=== PATIENT | female | born 1975 | race Caucasian/White ===

== ENCOUNTER 2017-02-17 16:02 | Inpatient (IN) | payer OTHER ==
[~2017-02-17] VITALS: Ht 154.9 cm; Wt 59.0 kg
[~2017-02-17 16:02] MED LIST: BACTRIM1 TAB PO; OSCD PO
[2017-02-17 19:38] LABS: BASOPHIL % 0.1 % (0-2); PLATELET COUNT 280 x10^3mcL (130-400); RED CELL DISTRIBUTION WIDTH 13.1 % (11.5-14.5)
[2017-02-17 19:45] LABS: CALCIUM 8.1 mg/dL (8.5-10.1); CARBON DIOXIDE 24.7 mmol/L (21-32); CHLORIDE SERUM 99 mmol/L (98-107); CREATININE SERUM 0.8 mg/dL (0.6-1.0); GFR1 > 60 mL/min; GLUCOSE SERUM 92 mg/dL (74-106); POTASSIUM SERUM 3.3 mmol/L (3.5-5.1); SODIUM SERUM 135 mmol/L (136-145)
[2017-02-17 19:57] LABS: ALBUMIN 3.3 g/dL (3.4-5.0); ALKALINE PHOSPHATASE 82 U/L (46-116); ALT/SGPT 27 U/L (14-59); AST/SGOT 20 U/L (15-37); BILIRUBIN TOTAL 0.71 mg/dL (0.20-1.00); T4(THYROXINE) 8.3 ug/dL (4.7-13.3); TOTAL PROTEIN, SERUM 7.3 g/dL (6.4-8.2)
[2017-02-17 21:20] LABS: UA SPECIFIC GRAVITY <=1.005 (1.005-1.035); microscopic required? YES; urine erythrocyte TRACE (NEGATIVE)
[2017-02-17] MEDS ORDERED: MULTIVITAMIN1 SGL PO (22:00)
[2017-02-18] VITALS (8 sets, daily range): BP systolic 80–94; BP diastolic 46–57
[2017-02-18 00:30] LABS: MAGNESIUM 1.8 mg/dL (1.8-2.4); PHOSPHOROUS 2.2 mg/dL (2.5-4.9)
[2017-02-18 00:36] LABS: CHOLESTEROL/HDL RATIO 2.2; T3 TOTAL 0.83 ng/mL
[2017-02-18 00:40] LABS: FREE T4 1.36 ng/dL (0.76-1.46); FREE THYROXINE INDEX 2.9 ug/dL (1.4-4.5); T4(THYROXINE) 8.1 ug/dL (4.7-13.3)
[2017-02-18 05:35] LABS: PLATELET COUNT 228 x10^3mcL (130-400); RED CELL DISTRIBUTION WIDTH 13.4 % (11.5-14.5)
[2017-02-18 05:43] LABS: BASOPHIL % 0 % (0-2)
[2017-02-18 06:52] LABS: CALCIUM 7.4 mg/dL (8.5-10.1); CARBON DIOXIDE 20.3 mmol/L (21-32); CHLORIDE SERUM 109 mmol/L (98-107); CREATININE SERUM 0.6 mg/dL (0.6-1.0); GFR1 > 60 mL/min; GLUCOSE SERUM 174 mg/dL (74-106); PHOSPHOROUS 2.5 mg/dL (2.5-4.9); POTASSIUM SERUM 4.5 mmol/L (3.5-5.1); SODIUM SERUM 140 mmol/L (136-145)
[2017-02-18 17:04] LABS: AMPHETAMINE QUAL UR NONE DETECTED (NEG <=1000)
[2017-02-19 00:21] VITALS: BP 95/52
[2017-02-19 05:13] VITALS: BP 97/52
[2017-02-19 06:25] LABS: PLATELET COUNT 245 x10^3mcL (130-400); RED CELL DISTRIBUTION WIDTH 13.6 % (11.5-14.5)
[2017-02-19 06:44] LABS: CALCIUM 7.9 mg/dL (8.5-10.1); CARBON DIOXIDE 21.9 mmol/L (21-32); CHLORIDE SERUM 110 mmol/L (98-107); CREATININE SERUM 0.6 mg/dL (0.6-1.0); GFR1 > 60 mL/min; GLUCOSE SERUM 150 mg/dL (74-106); MAGNESIUM 1.9 mg/dL (1.8-2.4); PHOSPHOROUS 2.7 mg/dL (2.5-4.9); POTASSIUM SERUM 4.1 mmol/L (3.5-5.1); SODIUM SERUM 141 mmol/L (136-145)
[2017-02-19 07:30] LABS: BAND NEUTROPHIL 2 % (0-10); BASOPHIL 0 % (0-2); MONOCYTE 1 % (0-7); SEGMENTED NEUTROPHILS 96 % (37-75)
[2017-02-19 07:31] LABS: rbc morphology (normal/abnorm) NORMAL (NORMAL)
[2017-02-19 07:32] LABS: PLATELET MORPHOLOGY PLATELETS NORMAL
[2017-02-19 09:12] VITALS: BP 91/56
[2017-02-19 10:03] VITALS: BP 91/56
[2017-02-19] MEDS ORDERED: LAC PO (10:16)
[2017-02-19] MEDS ORDERED: NITROFURANTOIN100 M3 PO (10:16)
== END 2017-02-19 11:06 | disposition home or self-care (01) | DRG 915 ==
LOC: ED 16:02 → IC 22:06 → DU 22:06 → IC 02-18 01:13 → DU 02-18 15:04
PROVIDERS: Emergency Medicine; ADMIT Family Medicine
DX: T88.6XXA Anaphylactic reaction due to adverse effect of correct drug or medicament properly administered, initial encounter (principal); E43 Unspecified severe protein-calorie malnutrition; N39.0 Urinary tract infection, site not specified; E87.1 Hypo-osmolality and hyponatremia; I95.2 Hypotension due to drugs; E83.51 Hypocalcemia; E87.6 Hypokalemia; D72.829 Elevated white blood cell count, unspecified; T37.0X5A Adverse effect of sulfonamides, initial encounter; Z68.24 Body mass index [BMI] 24.0-24.9, adult; Y92.018 Other place in single-family (private) house as the place of occurrence of the external cause; Z88.2 Allergy status to sulfonamides; Z83.3 Family history of diabetes mellitus; Z53.20 Procedure and treatment not carried out because of patient's decision for unspecified reasons; T38.0X5A Adverse effect of glucocorticoids and synthetic analogues, initial encounter
CPT/HCPCS: 80307; 82962; 83880; 84439; 87804; J0696; J1200; J2920; J2930; J3490; J7030; J7050; J7613; J7644; Q0092